=== PATIENT | female | born 2000 | race Asian ===

== ENCOUNTER 2018-08-13 15:49 | Day surgery (SDC) | payer BC ==
[2018-08-13] MEDS ORDERED: NEOMYC/POLYMYX/BACIT 30 GM OINT (17:27)
[2018-08-13] MEDS ORDERED: ONDANSETRON 4 MG INJ IV (17:30)
[2018-08-13] MEDS ORDERED: HYDROmorphONE 1 MG/5 ML IV SYRINGE IV (17:30)
[2018-08-13] MEDS ORDERED: DIPHENHYDRAMINE 50 MG INJ IV (17:30)
[2018-08-13] MEDS ORDERED: METOCLOPRAMIDE 10 MG INJ (17:34)
[2018-08-13] MEDS ORDERED: ROCURONIUM 50 MG INJ (17:34)
[2018-08-13] MEDS ORDERED: MIDAZOLAM 1 MG/ML 2 ML INJ (17:34)
[2018-08-13] MEDS ORDERED: PROPOFOL 20 ML (17:34)
[2018-08-13] MEDS ORDERED: KETOROLAC 30 MG INJ (17:35)
[2018-08-13] MEDS ORDERED: FENTAnyl 50 MCG/ML VIAL (17:38)
[2018-08-13] MEDS ORDERED: CEFAZOLIN 1 GM INJ (17:53)
[2018-08-13] MEDS ORDERED: morphine 4 MG/ML VIAL IV (18:00)
[2018-08-13] MEDS ORDERED: ONDANSETRON 4 MG INJ (18:23)
[2018-08-13] MEDS ORDERED: ROPIVACAINE 0.5 % 30 ML VIAL (18:58)
[2018-08-13] MEDS: ROPIVACAINE 0.5 % 30 ML VIAL (20:01)
[2018-08-13] MEDS: BACITRACIN/POLYMYXIN 28.35 GM OINT TOP (20:01)
[2018-08-13] MEDS: MEPERIDINE 25 MG INJ IV (20:37)
[2018-08-13] MEDS: HYDROmorphONE 1 MG/5 ML IV SYRINGE IV ×2 (20:50→20:56)
== END 2018-08-13 22:00 | disposition home or self-care (01) ==
LOC: SDS 15:49
DX: S82.62XD Displaced fracture of lateral malleolus of left fibula, subsequent encounter for closed fracture with routine healing (principal); X58.XXXD Exposure to other specified factors, subsequent encounter; M65.872 Other synovitis and tenosynovitis, left ankle and foot
CPT/HCPCS: 27792; 73610; 82306; 84703